=== PATIENT | male | born 1960 | race African-American/Black ===

== ENCOUNTER 2016-12-06 04:39 | Emergency (ER) | payer MEDICAID ==
[2016-12-06 05:17] LABS: BASOPHILS 0.3 % (0-2); EOSINOPHILS 3.8 % (0-7); HEMATOCRIT 44.2 % (42.0-54.0); HEMOGLOBIN 15.4 g/dL (13.5-17.5); IMMATURE GRANULOCYTES 0.1 % (0-5); LYMPHOCYTES 38.2 % (15-50); MCH 31.8 pg (26.0-34.0); MCHC 34.8 g/dL (31.0-37.0); MCV 91.1 fL (80.0-100.0); MEAN PLATELET VOLUME 10.3 fL (7.4-10.4); MONOCYTES 6.7 % (2-11); NEUTROPHILS 50.9 % (40-80); PLATELET COUNT 258 10x3/uL (130-400); RBC 4.85 10x6/uL (4.20-6.10); RDW 12.4 % (11.5-14.5); WBC 7.6 10x3/uL (4.8-10.8)
[2016-12-06 05:31] LABS: ALBUMIN 3.8 g/dL (3.4-5.0); ANION GAP 14.9 mmol/L (8-16); BILIRUBIN - TOTAL 0.96 mg/dL (0.2-1.3); CARBON DIOXIDE 24.1 mmol/L (21.0-32.0); CREATININE - SERUM 1.3 mg/dL (0.6-1.3); PROTEIN - SERUM 7.8 g/dL (6.4-8.2)
[2016-12-06 05:50] LABS: APPEARANCE CLEAR (CLEAR); BILIRUBIN NEGATIVE (NEGATIVE); COLOR YELLOW (YELLOW); GLUCOSE NEGATIVE (NEGATIVE); KETONE NEGATIVE (NEGATIVE); LEUKOCYTE ESTERASE NEGATIVE (NEGATIVE); NITRITE NEGATIVE (NEGATIVE); PROTEIN NEGATIVE (NEGATIVE); UROBILINOGEN NORMAL (NORMAL)
[2016-12-07] MEDS ORDERED: NORVASC10 MG PO (16:45)
[2016-12-07] MEDS ORDERED: COZAAR100 MG PO (16:46)
[2016-12-07] MEDS ORDERED: DILAUDID4 MG PO (16:51)
[2016-12-07 17:09] VITALS: BMI 32.6
== END 2016-12-06 06:50 | disposition home or self-care (01) ==
LOC: D.ER 04:39
PROVIDERS: Emergency Medicine
DX: R10.9 Unspecified abdominal pain (principal); N23 Unspecified renal colic; N20.1 Calculus of ureter

== ENCOUNTER 2016-12-07 11:34 | Inpatient (IN) | payer MEDICAID ==
[~2016-12-07] VITALS: Ht 182.9 cm; Wt 92.6 kg
[2016-12-07 13:46] LABS: BASOPHILS 0.3 % (0-2); EOSINOPHILS 1.4 % (0-7); HEMATOCRIT 42.9 % (42.0-54.0); HEMOGLOBIN 14.6 g/dL (13.5-17.5); IMMATURE GRANULOCYTES 0.1 % (0-5); LYMPHOCYTES 18.2 % (15-50); MCH 31.4 pg (26.0-34.0); MCV 92.3 fL (80.0-100.0); MEAN PLATELET VOLUME 10.1 fL (7.4-10.4); MONOCYTES 8.1 % (2-11); NEUTROPHILS 71.9 % (40-80); PLATELET COUNT 248 10x3/uL (130-400); RBC 4.65 10x6/uL (4.20-6.10); RDW 12.5 % (11.5-14.5); WBC 7.9 10x3/uL (4.8-10.8)
[2016-12-07 14:01] LABS: ALBUMIN 3.8 g/dL (3.4-5.0); ALKALINE PHOSPHATASE 65 U/L (46-116); ALT (SGPT) 20 U/L (10-68); BILIRUBIN - TOTAL 0.94 mg/dL (0.2-1.3); CALC OSMOLALITY 276 mosm/kg (275-300); CALCIUM 9.4 mg/dL (8.5-10.1); CARBON DIOXIDE 27.3 mmol/L (21.0-32.0); CHLORIDE - SERUM 104 mmol/L (98-107); CREATININE - SERUM 1.1 mg/dL (0.6-1.3); GLUCOSE 94 mg/dL (74-106); POTASSIUM - SERUM 3.8 mmol/L (3.5-5.1); PROTEIN - SERUM 7.7 g/dL (6.4-8.2); SODIUM 138 mmol/L (136-145); UREA NITROGEN 14 mg/dL (7-18); eGFR NON AFRICAN AMERICAN 73 mL/min (90-120)
[2016-12-07 14:13] LABS: CKMB 0.4 U/L (0.0-3.6); CREATINE KINASE 143 UL (21-232); TROPONIN-I < 0.017 ng/mL (0.000-0.060)
--- NOTE | 2016-12-07 16:40 | NUR ---
PATIENT RECEIVED TO FLOOR FROM ER VIA WHEELCHAIR. NO SIGNS OF DISTRESS NOTED. ORIENTED TO ROOM. CALL LIGHT IN REACH. FAMILY PRESENT. SIDE RAILS UP X2. BED IN LOW POSITION. CALL LIGHT IN REACH.
[2016-12-07] MEDS ORDERED: NORVASC10 MG PO (16:45)
[2016-12-07] MEDS ORDERED: COZAAR100 MG PO (16:46)
[2016-12-07] MEDS ORDERED: DILAUDID4 MG PO (16:51)
[2016-12-07 17:09] VITALS: BP 163/96; Ht 182.9 cm; Wt 92.6 kg
--- NOTE | 2016-12-07 17:55 | NUR ---
TELEMETRY IN PLACE. SPREADER OPERATOR AUTOMATIC REPORTS 71 NSR.
--- NOTE | 2016-12-07 18:42 | NUR ---
SCD ON BILATERALLY. USE EXPLAINED
--- NOTE | 2016-12-07 19:15 | NUR ---
RECEIVED CARE FROM DAY NURSE. PT LYING IN BED. REPORTS NO NEEDS AT THIS TIME. CALL LIGHT AT SIDE. TELEMTRY IN PLACE. IV INFUSING TO RIGHT FA, PATENT.
[2016-12-07 20:00] VITALS: BP 124/87
[2016-12-07 20:07] LABS: APPEARANCE CLEAR (CLEAR); COLOR YELLOW (YELLOW); UDS - AMPHET NEGATIVE QUAL (NEGATIVE); UDS - BARB NEGATIVE QUAL (NEGATIVE); UDS - BENZO NEGATIVE QUAL (NEGATIVE); UDS - COCAINE POSITIVE QUAL (NEGATIVE); UDS - METH NEGATIVE QUAL (NEGATIVE); UDS - OPIATE POSITIVE QUAL (NEGATIVE); UDS - PCP NEGATIVE QUAL (NEGATIVE); UDS - THC POSITIVE QUAL (NEGATIVE)
[2016-12-07 20:08] LABS: BILIRUBIN NEGATIVE (NEGATIVE); GLUCOSE NEGATIVE (NEGATIVE); KETONE LARGE mg/dL (NEGATIVE); LEUKOCYTE ESTERASE TRACE (NEGATIVE); NITRITE NEGATIVE (NEGATIVE); PROTEIN TRACE mg/dL (NEGATIVE); SPECIFIC GRAVITY 1.015 (1.005-1.020); UROBILINOGEN NORMAL (NORMAL)
[2016-12-07 20:10] LABS: BACTERIA FEW /hpf (NONE SEEN); MUCUS <1+ /lpf (NONE SEEN); RED CELLS - URINE RARE /hpf (0-5); WHITE CELLS - URINE OCC /hpf (0-5)
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
[2016-12-07 22:31] LABS: CKMB 0.4 U/L (0.0-3.6); CREATINE KINASE 134 UL (21-232); TROPONIN-I < 0.017 ng/mL (0.000-0.060)
--- NOTE | 2016-12-07 23:45 | NUR ---
PT LYING IN BED. REPORTS NO NEEDS. CALL LIGHT AT SIDE. TELEMETRY IN PLACE. BED ALARM ARMED. IV INFUSING PER ORDER TO PATENT IV.
[2016-12-08] VITALS (8 sets, daily range): BP systolic 141–187; BP diastolic 87–107
--- NOTE | 2016-12-08 03:40 | NUR ---
ASSESSED, PT IS RESTING ASLEEP WITH NO DISTRESS NOTED. FAMILY REMAINS AT THE BEDSIDE AND THE BED IS LOW, RAILS UP X'S 2 WITH THE CALL LIGHT AT HAND.
[2016-12-08 05:41] LABS: BASOPHILS 0.1 % (0-2); EOSINOPHILS 2.7 % (0-7); HEMOGLOBIN 14.3 g/dL (13.5-17.5); IMMATURE GRANULOCYTES 0.3 % (0-5); LYMPHOCYTES 22.6 % (15-50); MCV 90.9 fL (80.0-100.0); MEAN PLATELET VOLUME 10.6 fL (7.4-10.4); MONOCYTES 8.2 % (2-11); NEUTROPHILS 66.1 % (40-80); PLATELET COUNT 231 10x3/uL (130-400); RBC 4.62 10x6/uL (4.20-6.10); RDW 12.4 % (11.5-14.5); WBC 7.2 10x3/uL (4.8-10.8)
[2016-12-08 06:28] LABS: ALBUMIN 3.6 g/dL (3.4-5.0); ALKALINE PHOSPHATASE 59 U/L (46-116); ALT (SGPT) 19 U/L (10-68); CALC OSMOLALITY 274 mosm/kg (275-300); CALCIUM 9.1 mg/dL (8.5-10.1); CARBON DIOXIDE 24.7 mmol/L (21.0-32.0); CHLORIDE - SERUM 104 mmol/L (98-107); CHOL - HDL RATIO 3.5 ratio (2.3-4.9); CHOLESTEROL, TOTAL 182 mg/dL (0-200); CKMB 0.2 U/L (0.0-3.6); CREATINE KINASE 123 UL (21-232); CREATININE - SERUM 0.9 mg/dL (0.6-1.3); GLUCOSE 103 mg/dL (74-106); HDL CHOLESTEROL 52 mg/dL (32-96); LDL CHOLESTEROL 105 mg/dL (0-100); POTASSIUM - SERUM 3.7 mmol/L (3.5-5.1); SODIUM 138 mmol/L (136-145); TRIGLYCERIDE 125 mg/dL (30-200); TROPONIN-I < 0.017 ng/mL (0.000-0.060); eGFR NON AFRICAN AMERICAN > 90 mL/min (90-120)
[2016-12-08 06:36] LABS: UREA NITROGEN 10 mg/dL (7-18)
--- NOTE | 2016-12-08 07:40 | NUR ---
AWAKE AND ALERT AT THIS TIME. JASMIN MAT ALARM ON AND IN USE. DENIES NEEDS AT THIS TIME. IV PATENT AND CALL LIGHT IN REACH. WILL CONTINUE WITH PLAN OF CARE.
--- NOTE | 2016-12-08 08:22 | NUR ---
ASSISTED PT TO COMMODE AT THIS TIME SO HE CAN HAVE A BOWEL MOVEMENT. INSTRUCTED TO PT PULL THE EMERGENCY CORD WHEN HE WAS FINISHED AND NOT TO GET UP ALONE. PT VERBALIZED UNDERSTANDING. CALL LIGHT IN REACH, WILL CONTINUE WITH PLAN OF CARE.
--- NOTE | 2016-12-08 09:31 | NUR ---
SCHEDULED MEDICATIONS ADMINISTERED AT THIS TIME. IN BED, DENIES NEEDS. JASMIN MAT ALARM ON. WILL CONTINUE WITH PLAN OF CARE.
[2016-12-08] MEDS ORDERED: FISH OIL 1,0001 CA1 PO (09:32)
--- NOTE | 2016-12-08 15:54 | NUR ---
PRN APRESOLINE ADMINISTERED FOR HYPERTENSION, SEE FLOWSHEET.
--- NOTE | 2016-12-08 16:50 | NUR ---
IV TO RIGHT FOREARM TENDER. SITE SALINE LOCKED AND EXPLAINED TO PT THAT IV WOULD BE RE-SITED AND OLD ONE REMOVED AFTER HE FINISHED DINNER.
--- NOTE | 2016-12-08 17:29 | NUR ---
22G IV SITED TO LEFT WRIST X2 ATTEMPTS PER UNIQUE SMITH.
--- NOTE | 2016-12-08 19:15 | NUR ---
RECEIVED CARE FROM DAY NURSE. PT SITTING UP IN BED WITH DAUGHTER AT SIDE. REPORTS NO NEEDS. CALL LIGHT AT SIDE. IV PATENT AND INFUSING.
--- NOTE | 2016-12-08 23:25 | NUR ---
PT OFF FLOOR IN W/C WITH SIGNIFICANT OTHER. IV SL.
--- NOTE | 2016-12-09 03:25 | NUR ---
PATIENT RESTING IN BED WITH GUEST AT BEDSIDE AND DENIES NEEDS AT THIS TIME. BED IN LOWEST POSITION AND CALL LIGHT WITHIN REACH. ENCOURAGED THE PATIENT TO CALL IF HE HAS NEEDS.
[2016-12-09 04:06] VITALS: BP 157/93
--- NOTE | 2016-12-09 04:24 | NUR ---
PT LYING IN BED WITH COMPANY AT SIDE. REPORTS NO NEEDS. CALL LIGHT AT SIDE. IV INFUSING TO PATENT IV.
[2016-12-09 04:49] LABS: BASOPHILS 0.1 % (0-2); EOSINOPHILS 1.9 % (0-7); HEMATOCRIT 41.9 % (42.0-54.0); HEMOGLOBIN 14.7 g/dL (13.5-17.5); IMMATURE GRANULOCYTES 0.1 % (0-5); LYMPHOCYTES 18.2 % (15-50); MCHC 35.1 g/dL (31.0-37.0); MCV 91.1 fL (80.0-100.0); MEAN PLATELET VOLUME 10.3 fL (7.4-10.4); MONOCYTES 8.9 % (2-11); NEUTROPHILS 70.8 % (40-80); PLATELET COUNT 259 10x3/uL (130-400); RDW 12.3 % (11.5-14.5); WBC 7.4 10x3/uL (4.8-10.8)
[2016-12-09 05:03] LABS: ALBUMIN 3.6 g/dL (3.4-5.0); ALKALINE PHOSPHATASE 60 U/L (46-116); BILIRUBIN - TOTAL 1.18 mg/dL (0.2-1.3); CALC OSMOLALITY 274 mosm/kg (275-300); CHLORIDE - SERUM 102 mmol/L (98-107); GLUCOSE 101 mg/dL (74-106); POTASSIUM - SERUM 3.6 mmol/L (3.5-5.1); PROTEIN - SERUM 7.4 g/dL (6.4-8.2); SODIUM 138 mmol/L (136-145); UREA NITROGEN 10 mg/dL (7-18); eGFR NON AFRICAN AMERICAN 82 mL/min (90-120)
[2016-12-09 05:12] LABS: ALT (SGPT) 24 U/L (10-68)
--- NOTE | 2016-12-09 07:40 | NUR ---
PATIENT RECEIVED ALERT IN HIGH TAYLOR POSITION. NO SIGNS OF DISTRESS NOTED. GUEST AT BEDSIDE. DENIES NEEDS. SIDE RAILS UP X2. BED IN LOW POSITION. CALL LIGHT IN REACH.
[2016-12-09 08:53] VITALS: BP 173/105
--- NOTE | 2016-12-09 08:55 | NUR ---
PATIENT SITTING UP ON SIDE OF BED ALERT. NO SIGNS OF DISTRESS NOTED. SCHEDULED MEDICATION ADMINISTERED. BED IN LOW POSITION. CALL LIGHT IN REACH.
[2016-12-09 10:00] VITALS: BP 165/82
[2016-12-09 10:30] VITALS: BP 144/90
--- NOTE | 2016-12-09 12:00 | NUR ---
PATIENT UP AMBULATING IN HALLWAY WITH WALKER AND FAMILY. NO SIGNS OF DISTRESS NOTED.
[2016-12-09 12:20] VITALS: BP 167/84
[2016-12-09] MEDS ORDERED: ZOCOR20 MG PO (13:33)
[2016-12-09] MEDS ORDERED: THIAMINE HCL50 MG PO (13:33)
[2016-12-09] MEDS ORDERED: ASPIRIN325 MG PO (13:33)
[2016-12-09] MEDS ORDERED: FOLIC ACID1 MG PO (13:33)
--- NOTE | 2016-12-09 15:45 | NUR ---
IV TO LEFT WRIST D/C WITH CATH TIP INTACT. SITE COVERED WITH GAUZE AND BANDAID. D/C TEACHING PROVIDED. QUESTIONS ANSWERED.
--- NOTE | 2016-12-09 15:50 | NUR ---
PATIENT D/C HOME WITH FAMILY. TRANSFERRED DOWNSTAIRS VIA WHEELCHAIR STAFF
== END 2016-12-09 15:53 | disposition home or self-care (01) | DRG 65 ==
LOC: D.ER 11:34 → D.MS 15:59 → OBSVTIME 15:59 → D.MS 15:59
PROVIDERS: Family Medicine; ADMIT Family Medicine Adult Medicine
DX: I63.9 Cerebral infarction, unspecified (principal); G81.94 Hemiplegia, unspecified affecting left nondominant side; I10 Essential (primary) hypertension; F10.20 Alcohol dependence, uncomplicated; R29.810 Facial weakness

== ENCOUNTER 2017-05-17 04:28 | Emergency (ER) | payer MEDICAID ==
[2016-12-07 17:09] VITALS: BMI 32.6
[~2017-05-17 04:28] MED LIST: ASPIRIN325 MG PO; COZAAR100 MG PO; DILAUDID4 MG PO; FISH OIL 1,0001 CA1 PO; FOLIC ACID1 MG PO; NORVASC10 MG PO; THIAMINE HCL50 MG PO; ZOCOR20 MG PO
== END 2017-05-17 05:43 | disposition home or self-care (01) ==
LOC: D.ER 04:28
DX: R07.89 Other chest pain (principal); I10 Essential (primary) hypertension; Z86.73 Personal history of transient ischemic attack (TIA), and cerebral infarction without residual deficits

== ENCOUNTER 2018-01-22 22:07 | Emergency (ER) | payer MEDICAID ==
[~2018-01-22] VITALS: Ht 182.9 cm; Wt 1116.4 kg
[2018-01-22 22:18] VITALS: Ht 182.9 cm; Wt 1116.4 kg
[2018-01-22] MEDS ORDERED: ROBAXIN500 MG PO (23:07)
[2018-01-22] MEDS ORDERED: TORADOL10 MG PO (23:07)
[2018-01-22 23:31] VITALS: BP 135/91
== END 2018-01-22 23:31 | disposition home or self-care (01) ==
LOC: D.ER 22:07
DX: S16.1XXA Strain of muscle, fascia and tendon at neck level, initial encounter (principal); X50.0XXA Overexertion from strenuous movement or load, initial encounter; Y93.89 Activity, other specified; Y92.39 Other specified sports and athletic area as the place of occurrence of the external cause; M62.838 Other muscle spasm; M25.511 Pain in right shoulder; I10 Essential (primary) hypertension

== ENCOUNTER 2018-10-09 09:30 | Day surgery (SDC) | payer MEDICAID ==
[2018-10-06 15:07] LABS: HEMATOCRIT 37.7 % (42.0-54.0); HEMOGLOBIN 13.3 g/dL (13.5-17.5); MCH 30.3 pg (26.0-34.0); MCHC 35.3 g/dL (31.0-37.0); MCV 85.9 fL (80.0-100.0); MEAN PLATELET VOLUME 9.9 fL (7.4-10.4); RBC 4.39 10x6/uL (4.20-6.10); RDW 12.7 % (11.5-14.5); WBC 7.2 10x3/uL (4.8-10.8)
[~2018-10-09] VITALS: Ht 182.9 cm; Wt 113.4 kg
[~2018-10-09 09:30] MED LIST changes: +ROBAXIN500 MG PO; +TORADOL10 MG PO
[2018-10-09 11:33] VITALS: BP 137/70; Ht 182.9 cm; Wt 113.4 kg
--- NOTE | 2018-10-09 14:30 | NUR ---
REC'D FROM RR. FAMILY AT BEDSIDE. C/O FEELING HE NEEDS TO USE THE BATHROOM ALL THE TIME. GRAPE JUICE BROUGHT TO PT.
--- NOTE | 2018-10-09 15:00 | NUR ---
FL TRAY SERVED TO PATIENT. UP TO BATHROOM AND HAD BEEN INCONTINENT IN THE FLOOR. PATIENT WAS SLIPPING AND WOULD NOT SIT DOWN WHEN INSTRUCTED BY FAMILY MEMBER OR STAFF RELATING "I'M OK. I'M ALRIGHT.
--- NOTE | 2018-10-09 15:03 | OP ---
PATIENT NAME: LUIS SANABRIA MEDICAL RECORD: [id number] :58 LOCATION:[facility] ADMISSION DATE: SURGEON: TOBIN FENTON MD DATE OF OPERATION: 10/09/2018 SURGEON: Tobin Fenton MD ANESTHESIA: TIVA by Nessa Egan CRNA. DIAGNOSES: Obstructive benign prostatic hyperplasia. He failed treatment with finasteride and tamsulosin for more than 6 months. BRENNAN shows a 40 gram prostate. PSA is 3.38 on 10/09/2018. IPSS score is 14. Quality of life score is 6. Postvoid residual is 0 mL. PROCEDURE: UroLift times 4. FINDINGS: Obstructive lateral lobes, but no median lobe. Single ureteral orifices. Trabeculated bladder without any bladder tumors. CLINICAL HISTORY: This is a 58-year-old male with obstructive BPH. He started treatment in March 2018 with alfuzosin and then in April of 2018 he is started on finasteride and tamsulosin. He continues to have trouble with nocturia times 5, urgency, a slow urinary flow. IPSS score is 14. Quality of life score is 6 on the two medications. His postvoid residual is 0. He wishes to proceed with a UroLift surgery. He is not allergic to any medications. He was given Ancef application engineer to the OR. DESCRIPTION OF PROCEDURE: The patient was given IV sedation. He was placed in lithotomy position. He was then prepped and draped. The UroLift scope was introduced. Findings are as outlined above. We placed 2 units near the bladder neck, 1.5 cm distal to the bladder neck at the anterolateral sulcus of the lateral lobes. One unit was placed on each side. At the verumontanum level, we placed 1 unit on each side at the anterolateral sulcus. There was nice anterior urethral channel through the prostatic urethra. The bladder was left partly full for a voiding trial. He will be seen in followup in 1 months' time. TRANSINT:[id number] Voice Confirmation ID: [id number] DOCUMENT ID: [id number] TOBIN FENTON MD at 1503 CC: [id number] DICTATION DATE: 10/09/18 1426 SENIOR SALES ADMINISTRATOR: 10/09/18 [id number] [place] [address]
--- NOTE | 2018-10-09 15:30 | NUR ---
TOLERATED DIET. IV DC'D WITH CATHETER INTACT. CONTINUES TO QUESTION FEELING OF URGENCY. EXPLAINED THIS IS EXPECTED FOR THIS TYPE OF SURGERY AND WILL GET BETTER WITHIN 2-3 DAYS.
--- NOTE | 2018-10-09 15:55 | NUR ---
WRITTEN AND VERBAL DC INST. GIVEN TO PT. VERBALIZED UNDERSTANDING.
--- NOTE | 2018-10-09 16:05 | NUR ---
DC'D HOME WITH FAMILY VIA PRIVATE VEHICLE. STABLE AT TIME OF DC.
== END 2018-10-09 16:05 | disposition home or self-care (01) ==
LOC: D.OPS 09:30 → D.PAN 12:15 → D.OPS 16:05
PROVIDERS: Anesthesiology; ATTEND Urology
DX: N40.1 Benign prostatic hyperplasia with lower urinary tract symptoms (principal); N13.8 Other obstructive and reflux uropathy; N32.89 Other specified disorders of bladder; Z01.812 Encounter for preprocedural laboratory examination

== ENCOUNTER → 2018-10-16 18:19 | Outpatient (CLI) | payer MEDICAID ==
[2018-10-09 11:33] VITALS: BMI 34.0
== END | disposition home or self-care (01) ==
LOC: D.LABREF 18:19
PROVIDERS: ATTEND Urology
DX: R30.9 Painful micturition, unspecified (principal)

== ENCOUNTER 2018-11-06 05:47 | Day surgery (SDC) | payer MEDICAID ==
[2018-11-05 13:13] LABS: HEMATOCRIT 38.6 % (42.0-54.0); HEMOGLOBIN 13.9 g/dL (13.5-17.5); MCH 30.8 pg (26.0-34.0); MCV 85.4 fL (80.0-100.0); MEAN PLATELET VOLUME 9.7 fL (7.4-10.4); RBC 4.52 10x6/uL (4.20-6.10); RDW 12.4 % (11.5-14.5); WBC 6.4 10x3/uL (4.8-10.8)
[~2018-11-06] VITALS: Ht 185.4 cm; Wt 113.4 kg
[2018-11-06 06:54] VITALS: BP 139/84; Ht 185.4 cm; Wt 113.4 kg
[2018-11-06] MEDS ORDERED: HYDROCODON-ACE1 EA10 PO (08:28)
--- NOTE | 2018-11-07 15:25 | OP ---
PATIENT NAME: LUIS BEDOYA MEDICAL RECORD: [id number] :58 [facility] ADMISSION DATE: SURGEON: MAYA XIAO, ARNOLD HOLLINS DATE OF OPERATION: 11/06/2018 PREOPERATIVE DIAGNOSES: Labral tear, biceps tendinitis, impingement syndrome, acromioclavicular arthritis. POSTOPERATIVE DIAGNOSES: Labral tear, biceps tendinitis, impingement syndrome, acromioclavicular arthritis. PROCEDURES: 1. Arthroscopic labral debridement of the shoulder. 2. Arthroscopic distal clavicle excision done through separate incision arthroscopically. 3. Arthroscopic subacromial decompression, acromioplasty and bursectomy. SURGEON: Arnold Trejo MD CHANNEL LIP STIFFENER INSOLES: JERO Raza INTRAOPERATIVE COMPLICATIONS: None. 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 At the time of arthroscopy, labral findings were intrasubstance tearing and need of debridement, however, he did not need reapproximation of the labral. The tearing was from approximately the anterior equator just beyond the bicipital labral junction. He had good residual connection. He did have some biceps tendinitis; however, minimal, without any tearing. I felt at this point that a tenotomy or tenodesis was not going to be in his best interest given his avid bodybuilding status. I did find him to have a substantial excoriation of the coracoacromial ligament with severe impingement as well as acromioclavicular arthropathy. He had attritional changes of the superior rotator cuff, but no full-thickness tearing was noted. OPERATIVE SUMMARY IN DETAIL: After obtaining the appropriate preoperative orthopedic surgery consent as well as anesthetic consultation, evaluation and clearance, the patient was brought to the operating room and placed on the operating table in supine position. After adequate general laryngeal mask airway was administered, the patient was placed in a right lateral decubitus position. All pressure points were well padded to include down leg peroneal pad as well as axillary roll. The patient was held firmly to the operating table using the vacuum pack suction system. Left upper extremity and shoulder were then prepped and draped in routine sterile fashion. The arm was held in the Arthrex traction boom at 30 degrees of forward flexion, 30 degrees of abduction with 10 pounds of traction laterally. At this point, the appropriate preoperative time-out was taken to include the appropriate operative site, medications, antibiotics, and allergies. This was agreed upon by all in the operative suite. Arthroscopy was then established in the glenohumeral joint from the posterior portal. Anterior portal was established in the anterior safe interval. Diagnostic arthroscopy did reveal the above. Gentle labral resection was taken down as described above; however, the patient remained good labral contact with the portions that were not torn. The patient did have an area of near OPERATIVE REPORT [id number] LUIS BEDOYA full-thickness chondral defect at the anterior aspect of the glenoid at the 3 o'clock position. There were some areas of chondromalacia of the shoulder; however, not bad given this patient has long history of power lifting and bodybuilding. The biceps was examined thoroughly. He did have some tendinitis; however, there were no adhesions, only redness on the superficial aspect likely secondary to impingement. At this point, the scope was established in the subacromial space. While in the subacromial space, the coracoacromial ligament was noted to be substantially denuded. This was taken down to accessory lateral portal using the [place] tissue ablation system. The coracoacromial ligament was released in its entirety and a decompression was then performed with a 5-0 barrel bur to the level of acromioclavicular joint. Then through a separate anterior arthroscopic approach under direct arthroscopic visualization, the distal clavicle was taken down for 1 cm. The patient had a very large inferior osteophyte on the distal clavicle. This was taken down. Lastly, all bursal tissue was removed and thorough examination of the rotator cuff revealed attritional changes only and no tearing. Having completed this, arthroscopy portals were closed in routine interrupted fashion using 4-0 Prolene by Aditya Truong. Sterile dressings were applied. The patient was awakened and taken to the recovery room in stable condition. All final needle and sponge counts were correct. TRANSINT:[id number] Voice Confirmation ID: [id number] DOCUMENT ID: [id number] MAYA XIAO, ARNOLD HOLLINS at 1525 CC: [id number] DICTATION DATE: 11/07/18 1038 BAGGAGE SECURITY CHECKER: 11/07/18 1124 [facility] 11/06/18 [facility] [address] [place] [address]
== END 2018-11-06 10:33 | disposition home or self-care (01) ==
LOC: D.OPS 05:47 → D.PAN 08:15 → D.OPS 08:15
PROVIDERS: Anesthesiology; ATTEND Orthopaedic Surgery
DX: S43.492A Other sprain of left shoulder joint, initial encounter (principal); X58.XXXA Exposure to other specified factors, initial encounter; M75.22 Bicipital tendinitis, left shoulder; M75.42 Impingement syndrome of left shoulder; M13.812 Other specified arthritis, left shoulder; Z01.812 Encounter for preprocedural laboratory examination

== ENCOUNTER → 2019-01-19 11:03 | Outpatient (CLI) | payer MEDICAID ==
[2018-11-06 06:54] VITALS: BMI 33.0
[~2019-01-19 11:03] MED LIST changes: +HYDROCODON-ACE1 EA10 PO
== END | disposition home or self-care (01) ==
LOC: D.MRI 11:03
PROVIDERS: ATTEND Orthopaedic Surgery
DX: M75.22 Bicipital tendinitis, left shoulder (principal)

== ENCOUNTER 2019-02-02 08:40 | Day surgery (SDC) | payer MEDICAID ==
[2019-01-30 08:20] LABS: HEMATOCRIT 41.8 % (42.0-54.0); HEMOGLOBIN 14.4 g/dL (13.5-17.5); MCH 31.1 pg (26.0-34.0); MCHC 34.4 g/dL (31.0-37.0); MCV 90.3 fL (80.0-100.0); MEAN PLATELET VOLUME 10.8 fL (7.4-10.4); RBC 4.63 10x6/uL (4.20-6.10); RDW 12.7 % (11.5-14.5); WBC 6.7 10x3/uL (4.8-10.8)
[~2019-02-02] VITALS: Ht 182.9 cm; Wt 113.4 kg
[2019-02-02 09:26] VITALS: BP 145/94; Ht 182.9 cm; Wt 113.4 kg
[2019-02-02] MEDS ORDERED: HYDROCODON-ACE1 EA10 PO (14:12)
--- NOTE | 2019-02-02 14:49 | NUR ---
CARE TRANSFERRED TO ANGELA BLAKE RN, REPORT GIVEN.
--- NOTE | 2019-02-05 08:37 | OP ---
PATIENT NAME: LUIS SANABRIA MEDICAL RECORD: [id number] :58 LOCATION:[facility] ADMISSION DATE: SURGEON: ARNOLD TREJO MD DATE OF OPERATION: 02/02/2019 PREOPERATIVE DIAGNOSES: Impingement syndrome of the left shoulder with rotator cuff tear of the subscapularis. POSTOPERATIVE DIAGNOSES: Impingement syndrome of the left shoulder with rotator cuff tear of the subscapularis. PROCEDURES: 1. Left shoulder arthroscopy. 2. Open tenodesis of the left shoulder. 4. Rotator cuff repair - subscapularis. SURGEON: Arnold Trejo MD RECIPROCATING DRILL OPERATOR: Aditya Truong. INTRAOPERATIVE COMPLICATIONS: None. SUMMARY OF PATHOLOGIC FINDINGS: The patient was indeed found to have a full thickness subscapularis type sling tear with severe biceps tendinitis. Previous subacromial decompression had been done that was adequate as well as distal clavicle excision. OPERATIVE SUMMARY IN DETAIL: After obtaining the appropriate preoperative orthopedic surgery consent as well as anesthetic consultation, evaluation and clearance, the patient was brought to the operating room and placed on the operating table in supine position. After general laryngeal mask airway was administered, the patient was placed in a right lateral decubitus position. All pressure points were well padded to include down leg peroneal pad as well as axillary roll. The patient was held firmly to the operating table using the vacuum pack suction system. Left upper extremity and shoulder were then prepped and draped in routine sterile fashion. The arm was held in the Arthrex traction boom in 30 degrees of forward flexion, 30 degrees of abduction, 10 pounds of traction laterally. Arthroscopy was established in the glenohumeral joint from the posterior portal. Anterior portal was established in the anterior safe interval. Diagnostic arthroscopy did reveal the above findings. The patient had substantial biceps tendinitis, although his labrum had healed. At this point, the biceps was intact and saved for later approach. While in the subacromial space, the rotator cuff tearing that was not seen at the index procedure was seen anteriorly, whether it was new was difficult to tell. A small arthrotomy was then made at the anterolateral aspect. This was taken directly down to the tear. The biceps tendon was then identified sutured, cut, and then was tenodesed in the bicipital groove using a size 8 Bio-Tenodesis screw from [employer]. Next, the rotator cuff subscapularis tear was reapproximated side to side and then anchored using a 4.75 SwiveLock from [employer]. This resulted in good repair of the small upper end of the subscapularis tear. Wound was copiously irrigated and closed in the usual fashion by Aditya Truong. Sterile dressings were applied. Sling was applied. The patient was awakened and taken to recovery room in stable condition. All final needle and sponge counts were correct. OPERATIVE REPORT [id number] LUIS SANABRIA TRANSINT:[id number] Voice Confirmation ID: [id number] DOCUMENT ID: [id number] MAYA XIAO, ARNOLD HOLLINS at 0837 CC: [id number] DICTATION DATE: 02/04/19 1348 STACKER AND SORTER OPERATOR: 02/04/19 2237 [facility] 02/02/19 [id number] [place] [address]
== END 2019-02-02 16:05 | disposition home or self-care (01) ==
LOC: D.OPS 08:40 → D.PAN 13:30 → D.OPS 13:30
PROVIDERS: Anesthesiology; ATTEND Orthopaedic Surgery
DX: M75.42 Impingement syndrome of left shoulder (principal); M75.102 Unspecified rotator cuff tear or rupture of left shoulder, not specified as traumatic; M75.22 Bicipital tendinitis, left shoulder